=== PATIENT | male | born 1960 | race Caucasian/White ===

== ENCOUNTER 2017-02-20 16:36 | Emergency (ER) | payer OTHER ==
--- NOTE | ~2017-02-20 | CR93 ---
[facility] A Service of [facility] RADIOLOGY TEXT RESULTS PATIENT: LYN MANN LOCATION: SED : 64 UNIT #: [id number] AGE: [address]: Elvira Beard APRN SEX: M ORDER DR: [id number] [place] [id number] MR#: [id number] Acc #: [id number] NAME: LYN MANN. : 1960 SEX: M STUDY DATE/TIME: 02/20/2017 16:58 UNIT: SED ROOM: STUDY DESCRIPTION: CR Elbow Min 3 Views Lt Attending Physician: Elvira Beard A.P.R.N. Ordering Physician: Elvira Beard A.P.R.N. Primary Care Physician: No Primary Care Physician MEDICAL IMAGING REPORT This report is preliminary unless electronic signature is present. EXAM Left elbow. HISTORY Laceration to the elbow twice over the past week, once today and once 6 days ago. TECHNIQUE 3 views of the elbow were obtained. FINDINGS AP and lateral examination of the elbow shows satisfactory articulation of the humerus with the proximal radius and ulna. There is no identifiable fracture, dislocation, joint effusion, or radiopaque foreign body in the soft tissues. IMPRESSION Normal left elbow. Dictated by... Pankaj Shaw M.D. THIS IS AN ELECTRONICALLY VERIFIED REPORT Pankaj Shaw M.D. at 02/21/2017 10:03 AM ITZEL/paul TD: 02/21/2017 00:16 JOB #: [id number] [facility] A Service of [facility] RADIOLOGY TEXT RESULTS PATIENT: LYN MANN LOCATION: SED : 64 UNIT #: [id number] AGE: [address]: Elvira Beard APRN SEX: M ORDER DR: MEDICAL IMAGING REPORT Page 1 of 1
[~2017-02-20 16:36] MED LIST: ACETAMINOPHEN PO; AUGMENTIN PO; FLEXERIL PO; IBUPROFEN PO; LISINOPRIL-HCTZ1 T18 PO; LORTAB 5/500 TA1 TA1 PO; MEDROL PO; NORVASC PO; PEN-VEE K PO; ULTRAM PO; VICODIN 5/500 T1 TAB PO
== END 2017-02-20 17:49 | disposition home or self-care (01) ==
LOC: SED 16:36
DX: S51.012A Laceration without foreign body of left elbow, initial encounter (principal); S50.02XA Contusion of left elbow, initial encounter; F17.210 Nicotine dependence, cigarettes, uncomplicated; I10 Essential (primary) hypertension; W19.XXXA Unspecified fall, initial encounter; Y92.9 Unspecified place or not applicable; Z79.899 Other long term (current) drug therapy
CPT/HCPCS: 29260; 73080; 99283